=== PATIENT | female | born 1965 | race Caucasian/White ===

== ENCOUNTER 2025-04-10 08:30 | Outpatient (RCR) | payer MEDICARE, OTHER, SELFPAY ==
[2025-03-29 09:52] VITALS: BMI 19.6
[2025-03-29 12:26] VITALS: BP 110/70; PULSE 72; TEMP 37.1
--- NOTE | 2025-03-29 13:14 | PC.ADMIT ---
Patient is a 59 year old female who was referred to [facility] by her therapist secondary to increased depression and anxiety related to the loss of her mother one year ago unexpectedly. Patient reports she found her mother and was told by her therapist she is struggling with sxs of PTSD. Patient reports she struggles with panic attacks and depression and is having difficulty functioning. Patient also reports she is struggling with having to sell the family home, which she described as a safe place for her to go when struggling. Patient reports she decreased her hours at work to four days a week instead of 5 days a week d/t her mental health however she is looking to decrease her hours even further to attend PHP for more stabilization. Patient decreased her work hours last week until June 17, 2024. Patient is alert and oriented x4. She is calm and cooperative. She presented with depressed mood and anxious affect. Regarding SI patient denied currently. Patient stated, I do sometimes have thoughts of ending my life i have never acted on anything. This goes back to when I was age 16. Patient denied having any active plans or intent to end her life. Patient was given a copy of her safety plan if needed. Medications updated with patient and patient's pharmacy. Patient reports she is taking her medications as prescribed.
--- NOTE | 2025-03-29 14:03 | HO.PHP ---
Patient?s case was opened during weekly team treatment meeting
--- NOTE | 2025-04-02 22:33 | HO.PS.ADMBH ---
HPI Date of Service: 04/02/25 Chief Complaint: depression,anxiety,grief Sources of Information: patient interviewed, chart reviewed and crisis/core team assessment reviewed HPI Narrative: As per Initial ASsessment, patient is an employed, 59 year old female with history of ANIA, PTSD, Panic attacks with agoraphobic tendencies, migraines who was referred to PHP by her outpatient therapist Xenia Charles due to increased symptoms of anxiety, depression, panic and a diminished ability to function in her daily life. Leatha reported that her mother unexpectedly one year ago today , 03/28/24 and Leatha reported that she was the one to find her mother. She reported that she noticed an increase in her symptoms starting on due to the pending anniversary, the stress of the holiday season and the pending sale of her lifelong home which has pushed her feelings of grief to the forefront. Leatha reported that she has also been struggling with increased fatigue, lack of motivation, increase sense of doom and increased thoughts of and dying . Leatha reported that she initially thought her and her would be able to keep her mother's house but on Wednesday03/21/25 her and her looked at their financial situation and were unable to keep the house. Leatha reported that she has been struggling to complete her daily tasks due to struggling to cope with her symptoms of anxiety including panic attacks. Leatha reported that she has been struggling with a perceived loss of self and her identity due to feeling like she is unable to identify as a daughter. Today presents his pleasant calm and organized with anxious affect. I have been dealing with grief... Need time to take care of me. Sure my family understands depth of my depression and anxiety and how much these programs take on me. Takes a lot to be here. Feel guilty about not being at work . Low energy, appetite intact. Sleep has been good denies, any SI HI AH or VH. No illicit substance use. Current medications: Clonazepam 1 mg (split), venlafaxine 75 mg + 1/2 tablet (37.5 mg) sseing as 112.5 mg daily initially caused itchiness Past Psychiatric History: PPH: No prior IPLOC, PHP, respite, detox/rehab admissions SA: denies SIB: denies Aggression or antisocial behaviors: denies Denies legal history Previous diagnoses: ANIA Psychiatrist: Rosemarie Crocker APPRENTICE JOCKEY Therapist: Xenia Mcgill PCP: [facility] Previous trials: Zoloft Prozac Celexa Paxil (all these are allergies) BuSpar venlafaxine Effexor [facility] Medical History (Updated 05/22/25 @ 07:32 by Neda Carlin MD) Migraine Narrative: Migraines No h/o medical hospitalization for illness or injury Surgeries: denies Seizures: denies Concussions/TBI: denies G0 nulligravid postmenopausal Ht: 5'0 Wt: 100 lbs Diagnostics Vital Signs (24Hr): BMI result Body Mass Index 19.6 Meds/Allergies Meds Home Medications ?Medication ?Instructions ?Recorded ?Confirmed ?Type clonazepam 1 mg tablet 1 mg PO DAILY PRN anxiety 03/29/25 03/29/25 History rimegepant 75 mg disintegrating 75 mg PO DAILY PRN migraine 03/29/25 03/29/25 History tablet (Nurtec ODT) venlafaxine 37.5 mg 37.5 mg PO DAILY 03/29/25 03/29/25 History capsule,extended release 24 hr venlafaxine 75 mg capsule,extended 75 mg PO DAILY 03/29/25 03/29/25 History release 24 hr Allergies Allergies Allergy/AdvReac Type Severity Reaction Status Date / Time amitriptyline (From Elavil) Allergy Lost Verified 03/29/25 09:51 appetite, severe constipation, extreme nausea. amoxicillin (From Augmentin) Allergy All over Verified 03/29/25 09:51 body itching. benzonatate (From Tessalon Allergy Unknown. Verified 03/29/25 09:51 Perles) citalopram (From Celexa) Allergy Rash on Verified 03/29/25 09:51 chest. clavulanic acid (From Allergy All over Verified 03/29/25 09:51 Augmentin) body itching. erythromycin base Allergy Upset Verified 03/29/25 09:51 stomach. fluconazole (From Diflucan) Allergy Lips Verified 03/29/25 09:51 swelled, all over itching. fluoxetine (From Prozac) Allergy Burning Verified 03/29/25 09:51 feeling in entire body neomycin Allergy Unknown. Verified 03/29/25 09:51 paroxetine (From Paxil) Allergy Unknown Verified 03/29/25 09:51 polymyxin B Allergy Unknown. Verified 03/29/25 09:51 sertraline (From Zoloft) Allergy Unknown Verified 03/29/25 09:51 gabapentin AdvReac Top of Verified 03/29/25 09:51 head numbness, all over itching. CHG Allergy Rash Uncoded 03/29/25 09:51 hydrocortisone otic solution Allergy Unknown Uncoded 03/29/25 09:51 metronidazole pill form Allergy Severe Uncoded 03/29/25 09:51 anxiety/agitation. Mental Status Exam Mental Status Exam Narrative: Alert, oriented, in no acute distress. Calm, cooperative, engaged. No psychomotor agitation or neurovegetative retardation. Eye contact maintained. Mood anxiuos, depressed, affect constricted. Speech normal. Thought process linear, coherent. Thought content related to stressors, transient hopelessness, denies SI or HI. No paranoia or delusional content elicited. No evidence of psychosis. Insight and judgment - fair but adequate. Assessment & Plan Assessment & Plan (1) Persistent depressive disorder: Status: Acute Code(s): F34.1 - Dysthymic disorder (2) ANIA (generalized anxiety disorder): Status: Acute Code(s): F41.1 - Generalized anxiety disorder (3) PTSD (post-traumatic stress disorder): Status: Acute Code(s): F43.10 - Post-traumatic stress disorder, unspecified (4) Other specified anxiety disorders: Status: Acute Code(s): F41.8 - Other specified anxiety disorders Plan Admit to [facility] reviewed on admission continue regular medications for now Routine lab work as indicated EKG, routine for baseline QTc for medication considerations as indicated UDS as indicated [facility] reviewed Continue to monitor as per protocol Patient educated on: diagnosis and medication risk/benefits Informed Consent: understands Reason for continued partial hosp. stay Substantial Risk for: inability to function and med/psych decompensation Certification I certify that partial hospital treatment is medically necessary due to the symptoms and problems resulting from the patient's mental illness and the failure to treat the patient at the partial hospital level of care would likely result in the patient requiring inpatient psychiatric care which could not be prevented at a less intensive level of care. Time Spent With Patient Time: Total time managing care of this patient today __90__ minutes.
--- NOTE | 2025-04-10 19:52 | HO.PHPPROGNO ---
Subjective Subjective Date of Service: 04/10/25 Reason For Visit: depression,anxiety,grief Interim History: Patient seen for follow-up, anticipating discharge at the end of program today.? Reports no acute issues or concerns. Medication compliant, medications well-tolerated. Denies any adverse effects.? Mood is stable.? Denies any hopelessness or SI. Denies thoughts of harming self or others at this time. Denies any aggressive ideation or HI. Denies any paranoia or AH or VH. Sleep, appetite, energy stable. Mental Status Exam Mental Status Exam Narrative: Alert, oriented, in no acute distress. Calm, cooperative. Mood stable, affect appropriate. Speech normal. Thought process linear, coherent, more goal-directed. Thought content related to stressors, future-oriented, denies any helplessness, hopelessness or SI.? No aggressive ideation or HI. No paranoia or delusional content elicited. No evidence of psychosis. Insight and judgment fair-good. Diagnostics Vital Signs (24Hr): BMI result Body Mass Index 19.6 Assessment & Plan Assessment & Plan (1) Persistent depressive disorder: Status: Acute Code(s): F34.1 - Dysthymic disorder (2) PTSD (post-traumatic stress disorder): Status: Acute Code(s): F43.10 - Post-traumatic stress disorder, unspecified (3) OCD (obsessive compulsive disorder): Status: Acute Code(s): F42.9 - Obsessive-compulsive disorder, unspecified (4) ANIA (generalized anxiety disorder): Status: Acute Code(s): F41.1 - Generalized anxiety disorder Plan Discharge from [facility] Continue regular medications? Refills sent to pharmacy Will defer further medication management to outpatient provider *Safety plan reviewed *Discharge diagnoses, treatment course, discharge plan have been reviewed with patient (including medication regime, medication management, potential side effects) as well as treatment rationale were also revisited *Discharge paperwork signed and given to patient, copy sent for scanning to chart Patient educated on: diagnosis and medication risk/benefits Informed Consent: understands Reason for contiued partial hosp. stay Substantial Risk for: stable for discharge Certification I certify that partial hospital treatment is medically necessary due to the symptoms and problems resulting from the patient's mental illness and the failure to treat the patient at the partial hospital level of care would likely result in the patient requiring inpatient psychiatric care which could not be prevented at a less intensive level of care. Total time managing care of this patient today __30__ minutes. Discharge Plan Discharge Attending provider: Neda Carlin Medications: Continued venlafaxine 37.5 mg capsule,extended release 24hr 37.5 mg PO DAILY venlafaxine 75 mg capsule,extended release 24hr 75 mg PO DAILY clonazepam 1 mg tablet 1 mg PO DAILY PRN (Reason: anxiety) Nurtec ODT 75 mg tablet,disintegrating 75 mg PO DAILY PRN (Reason: migraine) Rx Instructions: TAKE 1 TABLET BY MOUTH EVERY 24 HOURS NEEDED FOR MIGRAINE HEADACHE NOT TO EXCEED 75MG IN 24 HOURS Patient Education: Anxiety (ED) Print Language: Ukrainian
== END 2025-04-10 23:59 | disposition home health service (06) ==
LOC: HO.PHPA 08:30
PROVIDERS: Visit Provider Psychiatry & Neurology Psychiatry
DX: F34.1 Dysthymic disorder (principal); F43.10 Post-traumatic stress disorder, unspecified; F42.9 Obsessive-compulsive disorder, unspecified; F41.1 Generalized anxiety disorder; F41.8 Other specified anxiety disorders; Z79.899 Other long term (current) drug therapy
CPT/HCPCS: 90853

== ENCOUNTER → 2025-04-10 08:30 | Outpatient (BNV) | payer MEDICARE, OTHER, SELFPAY | PROVIDERS: Visit Provider Psychiatry & Neurology Psychiatry | DX: F34.1 Dysthymic disorder (principal); F41.1 Generalized anxiety disorder; F43.10 Post-traumatic stress disorder, unspecified; F41.8 Other specified anxiety disorders | CPT/HCPCS: 90792; 99213 ==